=== PATIENT | female | born 1980 | race Caucasian/White ===

== ENCOUNTER → 2017-02-04 | Day surgery (SDC) | payer OTHER ==
--- NOTE | 2017-01-26 09:02 | GHP ---
[f rep st] PREOP HISTORY AND PHYSICAL Amended report SCHEDULED DATE OF SURGERY: 02/04/2017 SURGERY TO BE PERFORMED: Suction dilation and curettage. PREOPERATIVE DIAGNOSIS: Incomplete at 6 weeks gestation. HISTORY OF PRESENT ILLNESS: The patient is a 36-year-old, 1, para 0-0-1 -0 with a last menstrual period of October 27, 2016 who presented as a new patient to me on the with complaints of persistent vaginal bleeding and cramping status post spontaneous . The patient had been seen at [facility] for this . She had a history of polycystic ovarian syndrome and borderline thyroid function, and her had a history of decreased motility and morphology in his semen analysis. They were having a consultation with [facility] to try to conceive. The patient during her workup she had a spontaneous conception in October. She was followed by them, had ultrasounds. Ultrasounds initially revealed a pole that was 6 weeks' size, however, had a slow heart rate of 58, and a repeat ultrasound a week later, the heart rate had disappeared. The patient was given treatment options for her spontaneous , expectant management versus medical management versus surgical management. The patient initially rejected surgical management options and decided to try the Cytotec medication. The patient took this medication on January 10 when she had severe , painful cramping, heavy clots and cramps for several days, and then her bleeding slowed down. She had a repeat ultrasound at [facility] on January 13 that revealed a thickened endometrium that was 17 mm but no definitive retained products of conception. She was diagnosed as a spontaneous and her hormone levels and the recommendation was to follow her beta HCG down to 0. However, patient has continued to bleed and cramp for the last 2 weeks after that event and she desired to have a second opinion for management. When she saw me, she was having moderate spotting and increasing cramping. We repeated a pelvic ultrasound, and ultrasound revealed evidence of retained products of conception. In her lower endometrium and into her cervix, there was a 3.4 x 2.2 x 3.5 cm complex mass with a large feeder vessel seen from the uterus, the appearance of retained products of conception. No definitive gestational sac or pole were seen. No heart tones, heart motion. She also had ovaries consistent with PCOS. We again reviewed treatment options of repeat medical management versus surgical management, and patient desires to have surgical management because she wants to put this episode behind her. She was consented for a suction dilation curettage. Understands the risks and benefits. The risks including bleeding, infection, damage to the uterus, the possible risk of perforation, damage to other organs if perforation were to occur, risk of incomplete removal of all the tissue, need for repeat procedure, or spontaneous expulsion at a later time, as well as compromise of future fertility. She understood these risks and benefits and agreed to proceed. PAST OBSTETRICAL HISTORY: The patient has no past obstetrical history. This is her 1st . 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 She was evaluated during her fertility workup at [facility] and her TSH was 3.07. Because of studies revealing optimal thyroid function is at a TSH between 1 and 2, she was placed on Synthroid at 50 mcg daily which she continues to take currently. Also her diagnosis of PCOS. SURGICAL HISTORY: August of 2009 she had a knee surgery. GYNECOLOGICAL HISTORY: She had a normal menstrual triad, menarche at age 13. Currently she is having cycles every 31-40 days and she bleeds for 4 days with light flow and light cramps. She had more irregular cycles approximately 6 months ago but feels that they have been regulated by acupuncture and Israeli herbs. She has never had an abnormal Pap. Her last Pap was in December of 2014. She denies any history of STDs. She was using oral contraceptives for contraception until she was trying to conceive and she stopped those approximately a year ago. CURRENT MEDICATIONS: Include Synthroid 50 mcg daily, vitamins, and herbs from her [place] prior authorization nurse. ALLERGIES: She has no known drug allergies. SOCIAL HISTORY: She is for 7 years. She denies tobacco or substance abuse. Alcohol is social alcohol use approximately 3 a week. 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 FAMILY HISTORY: Her father has type 2 diabetes, is healthy at age 73. Her mother has hypertension and also had PCOS having difficulties getting . She is currently age 71. She has a healthy brother who is 38. No other significant family history. No significant cancer history. No other medical or gynecological problems. SUBJECTIVE: VITAL SIGNS: Today she is afebrile. Vital signs are stable. Current weight is 141. Blood pressure is 108/48. GENERAL: She is a well- developed, well-nourished, white female, in no acute distress. LUNGS: Clear to auscultation bilaterally. HEART: Regular rate and rhythm. No murmurs. ABDOMEN: Soft, nontender, nondistended. PELVIC: Will be deferred for the operating room. OBJECTIVE: The patient's ultrasound results were as above. ASSESSMENT AND PLAN: 36-year-old, 1, para 0-0-1-0, with an incomplete , was 6 weeks with a last menstrual period of 10/27/2016. We will do a suction dilation curettage for definitive management. /[id number]/MODL Amended 02/03/17, peewee HARTLEY
[~2017-02-04] MED LIST: DOXYCYCLINE INJ 100 MG in D5W 250 ML IV ONE; KETOROLAC 30 MG/1 ML SDV ONE; LIDOCAINE 2% 5 ML SDV ONE; MIDAZOLAM 2 MG/2 ML VIAL ONE; ONDANSETRON 4 MG/2 ML VIAL ONE; PROPOFOL/EMULSION 500 MG/50 ML BOTTLE IV ONE; fentaNYL 100 MCG/2 ML INJ ONE
--- NOTE | 2017-02-04 15:58 | GOP ---
[f rep st] OPERATIVE REPORT DATE OF OPERATION: 02/04/2017 SURGEON: Liz Abel MD ANESTHESIA: MAC sedation. ANESTHESIOLOGIST: Pablo Mosquera MD PREOPERATIVE DIAGNOSIS: Incomplete . POSTOPERATIVE DIAGNOSIS: Incomplete . PROCEDURE PERFORMED: Ultrasound-guided suction dilation and curettage. FINDINGS: SPECIMENS: Products of conception. ESTIMATED BLOOD LOSS: Less than 50 cc. DESCRIPTION OF PROCEDURE: Patient was taken to the operating room where she was given MAC sedation without difficulty, and she was prepped and draped in a dorsal lithotomy position. After a WHO time- out was performed, an open-sided speculum was placed in the vagina, and there was tissue and blood p resent at the cervical os. This was removed with a sponge forceps, and there was noted to be a foul odor. The anterior lip of the cervix was grasped with a Gates tenaculum, and the cervix was sounded to 8 cm. The cervix was then progressively dilated with Hebert dilators to a #7. A #7 curved suction curette was gently advanced from the cervix and advanced to the fundus, and tissue was obtained wit h several passes of the suction device. This was all performed under direct ultrasound guidance as a n abdominal ultrasound. After this, sharp curettage was then performed in a clockwise fashion until a gritty texture was palpated throughout the entire uterus and there was no further tissue obtained. One final passage of the suction again revealed good hemostasis and no further tissue. The tenaculum was removed. There was no bleeding at the cervix. The speculum was removed. A transvag inal ultrasound was then performed, and the uterus was found to be normal. There was a thin endometr ial stripe that was carried down from the fundus all the way to the cervix. The patient tolerated the procedure well. Sponge, lap, needle, and instrument counts were correct x2 . Patient went to the recovery room in good condition. INDICATIONS FOR PROCEDURE: The patient is a 36-year-old, 1, para 0-0-1-0 with a last menstr ual period of October 27, 2016, who presented with persistent bleeding, cramping, status post spontan eous . The patient had been followed by [facility] for this , a nd she spontaneously conceived. She was diagnosed with a spontaneous at approximately 6 wee ks and given options of medical management versus surgical management versus expectant. Patient ingreg pickering tried expectant management and then she tried a dose of Cytotec which she had significant cram ps and passed clots and blood, but there was tissue retained. On evaluation by me, in the beginning of January, she had an ultrasound that revealed a persistent 3 cm complex mass with a large feeder ves merrick in the lower endometrium into the cervix. The patient again was given treatment options, and she initially wished to try medical management again. She tried Cytotec with no sex, no bleeding, no cr amping, and then she began to have foul-smelling discharge with minimal bleeding but no tissue. At t his point, I recommended surgical management with suction dilation and curettage, and patient agreed . Patient was consented for the procedure. She understood the risks and benefits, the risks includin g bleeding, infection, damage to internal organs, uterus, including the uterus, possible risk of per foration and if perforation were to occur, possible risk of damage to other organs, risk of incomple te removal of the tissue with need for a repeat procedure with spontaneous expulsion at a later time , and compromise of future fertility. She understood these risks and benefits, and agreed to proceed . URINE OUTPUT: Not measured. IV FLUIDS: 800 cc. /[id number]/MODL
== END | disposition home or self-care (01) ==
LOC: FSGY 10:14
PROVIDERS: ATTEND Obstetrics & Gynecology
PROC: 10D17ZZ Extraction of Products of Conception, Retained, Via Natural or Artificial Opening (ICD-10-PCS; principal; 2017-02-04)
DX: O03.4 Incomplete spontaneous abortion without complication (principal)
CPT/HCPCS: J1885; J2250; J2405; J2704; J3010

== ENCOUNTER → 2017-10-13 | Outpatient (CLI) | payer OTHER | LOC: FIMAGING 08:56 | PROVIDERS: ATTEND Obstetrics & Gynecology | DX: O09.521 Supervision of elderly multigravida, first trimester (principal); Z3A.12 12 weeks gestation of pregnancy ==

== ENCOUNTER → 2017-12-08 | Outpatient (CLI) | payer OTHER | LOC: FIMAGING 11:46 | PROVIDERS: ATTEND Obstetrics & Gynecology | DX: O09.522 Supervision of elderly multigravida, second trimester (principal); O34.512 Maternal care for incarceration of gravid uterus, second trimester; Z3A.20 20 weeks gestation of pregnancy; Z82.79 Family history of other congenital malformations, deformations and chromosomal abnormalities ==

== ENCOUNTER → 2017-12-20 | Outpatient (CLI) | payer OTHER | LOC: FIMAGING 10:24 | PROVIDERS: ATTEND Obstetrics & Gynecology | DX: O09.522 Supervision of elderly multigravida, second trimester (principal); Z3A.22 22 weeks gestation of pregnancy; Z82.79 Family history of other congenital malformations, deformations and chromosomal abnormalities ==

== ENCOUNTER 2018-04-27 08:50 | Inpatient (IN) | payer OTHER ==
[2018-04-27] MEDS ORDERED: LR 1,000 ML IV PRN (09:42)
[2018-04-27] MEDS ORDERED: TERBUTALINE SULFATE 1 MG/ML VIAL IV PRN (09:42)
[2018-04-27] MEDS ORDERED: MISOPROSTOL 200 MCG TAB PR PRN (09:42)
[2018-04-27] MEDS ORDERED: OLIVE OIL 118 ML BTL MISC PRN (09:42)
[2018-04-27] MEDS ORDERED: LIDOCAINE 1% 300 MG/30 ML SDV SC PRN (09:42)
[2018-04-27] MEDS ORDERED: EPSOM SALT 454 GM TP PRN (09:42)
[2018-04-27] MEDS ORDERED: OXYTOCIN/RINGERS LACTATE 1,000 ML IV PRN (09:42)
[2018-04-27] MEDS ORDERED: IBUPROFEN 600 MG TAB PO PRN (09:42)
[2018-04-27] MEDS ORDERED: AMMONIA AROMATIC 1 EACH AMP IH ONE (09:53)
[2018-04-27] MEDS ORDERED: OXYTOCIN 10 UNIT/ML VIAL ONE (09:53)
[2018-04-27] MEDS ORDERED: MISOPROSTOL 200 MCG TAB ONE (09:53)
[2018-04-27] MEDS ORDERED: OLIVE OIL 118 ML BTL ONE (09:53)
[2018-04-27] MEDS ORDERED: TERBUTALINE SULFATE 1 MG/ML VIAL ONE (09:53)
[2018-04-27] MEDS ORDERED: LIDOCAINE 1% 300 MG/30 ML SDV ONE (09:53)
[2018-04-27 10:24] LABS: PLATELET COUNT 178 10^3/uL (150-400)
--- NOTE | 2018-04-27 10:30 | PDGENHP ---
History and Physical History and Physical: CARE: [facility] HPI: Patient is a 37 yo with IUP@ 40-2wks that presents to L&D with complaints of SROM 04/26/18 @1930- states it was clear fluid and she denies any VB. She reports +FM. She states she has started to have some irregular contractions starting at 0730. EDC: 04/25/2018 which is based on LMP: 07/19/17 which is known and consistent with Ultrasound at 7 weeks. Her is complicated by: AMA, Rubella NI, anemia, Rh negative, FOB with congenital heart disease Review of Systems: Constitutional: Denies any fever, chills, or fatigue HEENT: denies any visual changes, difficulty swallowing, hearing loss Cardiovascular: Denies any chest pain, palpitations, leg swelling Respiratory: denies any cough, wheezing, or shortness of breathe GI: Denies any nausea, vomiting, diarrhea, constipation : denies any dysuria, urgency, frequency, vaginal bleeding Musculoskeletal: denies any muscle or bone pain Skin: denies any rashes Neuro: denies any headache, seizures, lightheadedness, dizziness, or loss of consciousness Psychiatric: denies any depression, anxiety, or SI/HI thoughts HISTORY: Previous OB history: 2017 Past medical history: Rh negative Past surgical history: plical fold left knee Medications: PNV, rhogam 02/07/18 Allergies (list reaction): NKDA LABS: Rh: O neg ABS: Neg Rubella: NON-Immune HbsAg: NR HIV: NR VDRL: NR 1hr: 81 GC: Neg Chlamydia: Neg Pap: Normal GBS: negative BMI: (prepreg) 23 PHYSICAL EXAM: Constitutional: WN, A&Ox3 HEENT: normocephalic atraumatic, supple Heart: RRR, no murmur Chest: CTA-B Abdomen: Soft, nontender, gravid SVE: 2/80/-2 Extremities: trace edema, negative homans sign Neuro: grossly normal Psych: normal affect assessment: Reassuring FHTs, baseline 130 +accels, no decels, moderate variability Contractions: toco q 2-5 Assessment: 1) 37yo with IUP@ 40-2wks 2) early labor, SROM 04/26 @ 1930 3) GBS negative 4) Cat 1 FHR tracing Plan: 1) Admit to L&D 2) pitocin augmentation, pt declines at this time, will reassess 2hr PRN 3) pain management PRN
[2018-04-27] MEDS ORDERED: BUPIVACAINE 0.25% 30 ML SDV ONE (12:12)
[2018-04-27] MEDS ORDERED: PHENYLEPHRINE HCL 100 MCG/ML SYR ONE (12:12)
[2018-04-27] MEDS ORDERED: fentaNYL 200 MCG, BUPIVACAINE 0.5% 20 ML in NS 100 ML EP SCH (12:13)
[2018-04-27] MEDS ORDERED: fentaNYL 100 MCG/2 ML INJ ONE ×2 (12:14→12:18)
--- NOTE | 2018-04-27 12:56 | OBPROG ---
Labor Progress Note Assessment/Plan: Assessment: 37yo with IUP@40-2 early labor SROM 7/4 @ 1930 GBS Negative SANTA in place Cat 1 FHR tracing Plan: start pitocin PRN anticipate 04/27/18 13:40 Subjective/Intrapartum Course: 04/27/18 13:42 Pt doing well, she is comfortable with SANTA. She is discouraged regarding minimal cervical change. She is okay with starting pitocin. FOB and electronics processing supervisor @ BS, supportive. Objective: 04/27/18 09:45 Patient ABO/Rh O NEGATIVE 04/27/18 09:45 - SVE Dilation (cm): 3 Effacement (%): 75 Station: -2 Membranes: SROM Amniotic Fluid Color: Clear - Contraction Pattern Assessment Current Contraction Pattern: Regular - FHR Assessment Bueno FHR (bpm): 125 FHR Pattern Variability: Moderate Oxytocin Orders Assessment - Pre-Induction/Augmentation Assessment Presentation: Vertex Gestational Age: 40 week(s) and 2 day(s) Estimated Weight: 4798-7427 Membrane Status: Ruptured Current Contraction Pattern: Regular - Heart Rate Pattern Bueno FHR Category: 1 - Rosales's Score Dilation: 3-4cm Effacement: 60-70 Station: -2 Cervix: Medium Cervix Position: Mid Rosales Score Total: 7 - Induction/Augmentation Consent Risks/Benefits of Procedure Reviewed/Pt Agrees to Proceed: Yes ICD10 Worksheet Patient Problems: Problems Problem Status Onset Labor and delivery, indication for care Acute - ICD10 Problem Qualifiers (1) Labor and delivery, indication for care
[2018-04-27] MEDS ORDERED: ONDANSETRON 4 MG/2 ML VIAL IVP PRN (13:05)
[2018-04-27] MEDS ORDERED: PHENYLEPHRINE HCL 100 MCG/ML SYR IVP PRN (13:05)
--- NOTE | 2018-04-27 13:12 | PREANESOB ---
Obstetric Pre-Anesthesia Info - General Info Proposed Procedure: Labor and delivery. : 2 Para: 0 GLYNN: 04/25/18 Gestational Age: 40 week(s) and 2 day(s) - Info Status: Full Term Monitors: External FHR Baseline (bpm): 140 FHR Pattern: Reassuring - Labor Status Cervical Dilation per last OB SVE: 2 PIH: No Anesthesia ROS: Previous D&C and knee surgery with general anesthesia. Allergies/Adverse Reactions: Allergy/AdvReac Type Severity Reaction Status Date / Time No Known Allergies Allergy Unverified 02/04/17 10:39 Home Medications: Medication Instructions Recorded Vit27&Calcium/Iron/FA 04/27/18 [] Visit Medications: Generic Name Dose Route Start Last Admin Trade Name Freq PRN Reason Stop Dose Admin Diphenhydramine HCl 25 - 50 mg 04/27/18 13:05 Benadryl Injection IVP 10/24/18 13:04 Q6HRS PRN Itching Lactated Ringer's 1,000 mls @ 0 mls/hr 04/27/18 09:42 Lr IV 04/28/18 09:41 PRN PRN SEE PROTOCOL CONDITIONS Protocol Per Protocol Oxytocin/Lactated Ringer's 1,000 mls @ 125 mls/hr 04/27/18 09:42 Pitocin 20 Units/Lr (Premix) IV PRN PRN Post bleeding Fentanyl 200 mcg/ Bupivacaine 100 mls @ mls/hr 04/27/18 12:13 HCl 20 ml/ Sodium Chloride EP 05/07/18 12:12 CONT OREN As Directed Ibuprofen 600 mg 04/27/18 09:42 Motrin PO ONCE PRN post , pain Lidocaine HCl 300 mg 04/27/18 09:42 Lidocaine Hcl 1% SC 10/24/18 09:41 ONCE PRN episiotomy Magnesium Sulfate 454 gm 04/27/18 09:42 Epsom Salt TP 10/24/18 09:41 Q1H PRN perineal discomfort Misoprostol 800 - 1,000 mcg 04/27/18 09:[address] ONCE PRN Vaginal Atony/Bleeding [place] Oil 118 ml 04/27/18 09:42 Sweet Oil MISC 10/24/18 09:41 ONCE PRN perineal massage Terbutaline Sulfate 0.25 mg 04/27/18 09:42 Brethine IV 10/24/18 09:41 ONCE PRN Tachysystole Discontinued Medications Generic Name Dose Route Start Last Admin Trade Name Kody PRN Reason Stop Dose Admin Ammonia (Aromatic Spirit) Confirm 04/27/18 09:53 Ammonia Aromatic Administered 04/27/18 09:54 Dose 1 each IH .STK-MED ONE Bupivacaine HCl Confirm 04/27/18 12:12 Sensorcaine 0.25% Sdv Administered 04/27/18 12:13 Dose 30 ml .ROUTE .STK-MED ONE Fentanyl Confirm 04/27/18 12:14 Sublimaze Administered 04/27/18 12:15 Dose 100 mcg .ROUTE .STK-MED ONE Fentanyl Confirm 04/27/18 12:18 Sublimaze Administered 04/27/18 12:19 Dose 100 mcg .ROUTE .STK-MED ONE Lidocaine HCl Confirm 04/27/18 09:53 Lidocaine Hcl 1% Administered 04/27/18 09:54 Dose 300 mg .ROUTE .STK-MED ONE Misoprostol Confirm 04/27/18 09:53 Cytotec Administered 04/27/18 09:54 Dose 1,000 mcg .ROUTE .STK-MED ONE [place] Oil Confirm 04/27/18 09:53 Sweet Oil Administered 04/27/18 09:54 Dose 118 ml .ROUTE .STK-MED ONE Oxytocin Confirm 04/27/18 09:53 Pitocin Administered 04/27/18 09:54 Dose 40 unit .ROUTE .STK-MED ONE Phenylephrine HCl Confirm 04/27/18 12:12 Neosynephrine Administered 04/27/18 12:13 Dose 1,000 mcg .ROUTE .STK-MED ONE Terbutaline Sulfate Confirm 04/27/18 09:53 Brethine Administered 04/27/18 09:54 Dose 1 mg .ROUTE .STK-MED ONE - Anesthesia History Response to Local Anesthetics: Normal Anesthesia & Operative History: No Prior Problems Family Anesthesia History: Negative - Social History Substance Use/Abuse: Denies - Vital Signs Blood Pressure: 118/72 Heart Rate: 70 Height/Weight (Nursing): Height 165.1 cm Weight 75.9 kg - Focused Exam Neck exam: FROM Mallampati Score: Class 1 Mouth exam: normal dental/mouth exam Pulmonary: no respiratory distress Cardiovascular: regular rate and rhythym Labs: 04/27/18 09:45 Patient ABO/Rh O NEGATIVE 04/27/18 09:45 - Plan Anesthetic Plan: CSE Consent Signed and on Chart: Yes Patient/Guardian Understands and Agrees to Plan: Yes Urgent/Emergent Case: Shahbaz vergaraal completed preop but documented later for safe timely pt care
--- NOTE | 2018-04-27 13:13 | POSTANESTH ---
Post Anesthetic Evaluation Cardiovascular Status: Normal, Stable, Similar to Pre-Op Cond Respiratory Status: Normal, Stable, Similar to Pre-op Cond. Level of Consciousness/Mental Status: Can Participate in Eval, Alert and Oriented Pain Control: Adequate, Prn Tx Ordered Nausea/Vomiting Control: Adequate, Prn Tx Ordered Complications Possibly Related to Anesthesia: None Noted
[2018-04-27] MEDS ORDERED: fentaNYL 2MCG/ML/BUP 0.1% RTU 100 ML EP SCH (13:30)
[2018-04-27] MEDS ORDERED: LR 500 ML IV SCH (13:30)
[2018-04-27] MEDS ORDERED: LR 500 ML IV PRN (16:19)
[2018-04-27] MEDS ORDERED: OXYTOCIN/RINGERS LACTATE 500 ML IV SCH (16:30)
--- NOTE | 2018-04-27 16:54 | OBPROG ---
Labor Progress Note Assessment/Plan: Assessment: 37yo with IUP@40-2 early labor SROM 7/4 @ 1930 GBS Negative SANTA in place Cat 1 FHR tracing IUPC placed Plan: start pitocin if MVU's <180 anticipate Subjective/Intrapartum Course: 04/27/18 16:53 Pt doing well, she is comfortable with SANTA. She denies any pain or pressure. She has agreed to pitocin, will start if MVU's <180. FOB and mold builder @ BS and supportive. Objective: 04/27/18 09:45 Patient ABO/Rh O NEGATIVE 04/27/18 09:45 Temp Pulse Resp BP Pulse Ox 70 118/72 04/27/18 13:13 04/27/18 13:13 - SVE Dilation (cm): 4 Effacement (%): 80 Station: -2 Membranes: SROM Amniotic Fluid Color: Clear - Contraction Pattern Assessment Current Contraction Pattern: Regular - Procedures Non-surgical Procedures: IUPC - Physical Exam Estimated Weight: 2506-6184 Oxytocin Orders Assessment - Pre-Induction/Augmentation Assessment Presentation: Vertex Gestational Age: 40 week(s) and 2 day(s) Estimated Weight: 5326-6680 ICD10 Worksheet Patient Problems: Problems Problem Status Onset Labor and delivery, indication for care Acute - ICD10 Problem Qualifiers (1) Labor and delivery, indication for care
--- NOTE | 2018-04-27 17:45 | SOAPPROG ---
SOAP Progress Note Assessment/Plan: nurse called for concerns re: pseudosinusoidal pattern FHR tracing reviewed +Scalp stimulation reassured with FHR tracing Start pitocin at this time. 04/27/18 17:43 Objective: Vital Signs Temp Pulse Resp BP Pulse Ox 70 118/72 04/27/18 13:13 04/27/18 13:13 Laboratory Results 04/27/18 09:45 ICD10 Worksheet Patient Problems: Problems Problem Status Onset Labor and delivery, indication for care Acute - ICD10 Problem Qualifiers (1) Labor and delivery, indication for care
--- NOTE | 2018-04-27 20:01 | OBPROG ---
Labor Progress Note Assessment/Plan: Assessment: 37yo with IUP@ 40-2wks GBS Negative SROM 7/4 @ 1930, >24hr Cat 2 FHR tracing [address] O negative Plan: cont pitocin until adequate MVUs reassess 2hr/PRN 04/27/18 19:57 Subjective/Intrapartum Course: 04/27/18 16:53 Pt doing well, she is comfortable with SANTA. She denies any pain or pressure. She has agreed to pitocin, will start if MVU's <180. FOB and steeping press tender @ BS and supportive. 04/27/18 20:01 Pt comfortable with SANTA. Denies any pain or pressure. Objective: 04/27/18 09:45 Patient ABO/Rh O NEGATIVE 04/27/18 09:45 Temp Pulse Resp BP Pulse Ox 70 118/72 04/27/18 13:13 04/27/18 13:13 - SVE Dilation (cm): 6 Effacement (%): 90 Station: -1 Membranes: SROM Amniotic Fluid Color: Clear - Contraction Pattern Assessment Current Contraction Pattern: Regular - FHR Assessment Buneo FHR (bpm): 135 FHR Pattern Variability: Moderate FHR Category: 2 - Procedures Non-surgical Procedures: FSE, IUPC - Physical Exam Estimated Weight: 8637-2359 Oxytocin Orders Assessment - Pre-Induction/Augmentation Assessment Presentation: Vertex Gestational Age: 40 week(s) and 2 day(s) Estimated Weight: 0822-6115 ICD10 Worksheet Patient Problems: Problems Problem Status Onset Labor and delivery, indication for care Acute - ICD10 Problem Qualifiers (1) Labor and delivery, indication for care
--- NOTE | 2018-04-28 00:39 | OBPROG ---
Labor Progress Note Assessment/Plan: Assessment: 37yo with IUP@ 40-3wks GBS Negative Prolong ROM (SROM 7/4 @ 1930) Cat 1 FHR tracing SANTA in place O negative ?Asynclitic presentation Plan: cont pitocin augmentation Reassess in 1 hour- if not complete will proceed with c/s discussed position and possibility of asynclitic presentation Discussed with Maddison Vasquez MD- aware/agrees with POC 04/28/18 00:24 Subjective/Intrapartum Course: 04/27/18 16:53 Pt doing well, she is comfortable with SANTA. She denies any pain or pressure. She has agreed to pitocin, will start if MVU's <180. FOB and milling planer operator @ BS and supportive. 04/27/18 20:01 Pt comfortable with SANTA. Denies any pain or pressure. 04/28/18 00:39 Pt comfortable- has hit bolus button for SANTA. She denies any pressure. She is hopeful for Objective: 04/27/18 09:45 Patient ABO/Rh O NEGATIVE 04/27/18 09:45 Temp Pulse Resp BP Pulse Ox 70 118/72 04/27/18 13:13 04/27/18 13:13 - SVE Dilation (cm): 9 Effacement (%): 90 Station: -1 Membranes: SROM Amniotic Fluid Color: Clear - Contraction Pattern Assessment Current Contraction Pattern: Regular - Procedures Non-surgical Procedures: FSE, IUPC - Physical Exam Estimated Weight: 9837-3431 Oxytocin Orders Assessment - Pre-Induction/Augmentation Assessment Presentation: Vertex Gestational Age: 40 week(s) and 2 day(s) Estimated Weight: 2892-7125 ICD10 Worksheet Patient Problems: Problems Problem Status Onset Labor and delivery, indication for care Acute - ICD10 Problem Qualifiers (1) Labor and delivery, indication for care
--- NOTE | 2018-04-28 02:55 | OBPROG ---
Labor Progress Note Assessment/Plan: Assessment: 37yo with IUP@ 40-3wks GBS Negative Prolong ROM (SROM 7/4 @ 1930) Cat 1 FHR tracing SANTA in place O negative ?Asynclitic presentation Plan: cont pitocin augmentation start pushing at this time if no descent will consult with Maddison Vasquez MD Subjective/Intrapartum Course: 04/27/18 16:53 Pt doing well, she is comfortable with SANTA. She denies any pain or pressure. She has agreed to pitocin, will start if MVU's <180. FOB and service girl @ BS and supportive. 04/27/18 20:01 Pt comfortable with SANTA. Denies any pain or pressure. 04/28/18 00:39 Pt comfortable- has hit bolus button for SANTA. She denies any pressure. She is hopeful for 04/28/18 01:50 Pt comfortable with SANTA. She denies any pain or pressure. Objective: 04/27/18 09:45 Patient ABO/Rh O NEGATIVE 04/27/18 09:45 Temp Pulse Resp BP Pulse Ox 70 118/72 04/27/18 13:13 04/27/18 13:13 - SVE Dilation (cm): 10 Effacement (%): 100 Station: 0 Membranes: SROM Amniotic Fluid Color: Clear - Contraction Pattern Assessment Current Contraction Pattern: Regular - Procedures Non-surgical Procedures: FSE, IUPC - Physical Exam Estimated Weight: 0009-8194 Oxytocin Orders Assessment - Pre-Induction/Augmentation Assessment Presentation: Vertex Gestational Age: 40 week(s) and 2 day(s) Estimated Weight: 3331-1718 ICD10 Worksheet Patient Problems: Problems Problem Status Onset Labor and delivery, indication for care Acute - ICD10 Problem Qualifiers (1) Labor and delivery, indication for care
--- NOTE | 2018-04-28 04:37 | OBPROG ---
Labor Progress Note Assessment/Plan: Assessment: 37 at 40w 3d with arrest of descent after pushing for a total of over 2 hours, and over an hour of passive descent, with prolonged rupture of membranes x 33 hours. Plan: Written informed consent obtained, will proceed with primary C/S. Maddison Vasquez MD, FACOG, [facility] 04/28/18 04:34 Subjective/Intrapartum Course: 04/27/18 16:53 Pt doing well, she is comfortable with SANTA. She denies any pain or pressure. She has agreed to pitocin, will start if MVU's <180. FOB and polymerization helper @ BS and supportive. 04/27/18 20:01 Pt comfortable with SANTA. Denies any pain or pressure. 04/28/18 00:39 Pt comfortable- has hit bolus button for SANTA. She denies any pressure. She is hopeful for 04/28/18 01:50 Pt comfortable with SANTA. She denies any pain or pressure. 04/28/18 04:36 Pt has been pushing since before 0200, no descent, is frustrated. Objective: 04/27/18 09:45 Patient ABO/Rh O NEGATIVE 04/27/18 09:45 Temp Pulse Resp BP Pulse Ox 70 118/72 04/27/18 13:13 04/27/18 13:13 SVE - C/C/ 0 narrowed pubic arch. Unable to confirm position due to caput and significant maternal edema, though suspect occiput transverse. - SVE Membranes: SROM Amniotic Fluid Color: Clear - Contraction Pattern Assessment Current Contraction Pattern: Regular - FHR Assessment Bueno FHR (bpm): 130 FHR Pattern Variability: Moderate (intermittent early decelerations) FHR Category: 2 - Procedures Non-surgical Procedures: FSE, IUPC - Physical Exam Estimated Weight: 5997-4370 Oxytocin Orders Assessment - Pre-Induction/Augmentation Assessment Presentation: Vertex Gestational Age: 40 week(s) and 2 day(s) Estimated Weight: 4888-9260 Current Contraction Pattern: Regular ICD10 Worksheet Patient Problems: Problems Problem Status Onset Deep transverse arrest Acute Deep transverse arrest Acute Labor and delivery, indication for care Acute - ICD10 Problem Qualifiers (1) Deep transverse arrest Qualifiers: Fetus number: single or unspecified fetus Qualified Code(s): O64.0XX0 - Obstructed labor due to incomplete rotation of head, not applicable or unspecified (2) Deep transverse arrest
[2018-04-28] MEDS ORDERED: ceFAZolin 2 GM/DEXTROSE 100 ML IV ONE (04:39)
[2018-04-28] MEDS ORDERED: LR 500 ML IV ONE (04:39)
--- NOTE | 2018-04-28 04:47 | OBPROG ---
Labor Progress Note Assessment/Plan: Assessment: 37yo with IUP@ 40-3wks GBS Negative Prolong ROM (SROM 7/4 @ 1930) Cat 1 FHR tracing SANTA in place O negative ROT position? Arrest of descent Plan: consulted with Dr Maddison Vasquez for primary c/s counseled pt re: c/s B/R/A, consents obtained Subjective/Intrapartum Course: 04/27/18 16:53 Pt doing well, she is comfortable with SANTA. She denies any pain or pressure. She has agreed to pitocin, will start if MVU's <180. FOB and ceramic sprayer @ BS and supportive. 04/27/18 20:01 Pt comfortable with SANTA. Denies any pain or pressure. 04/28/18 00:39 Pt comfortable- has hit bolus button for SANTA. She denies any pressure. She is hopeful for 04/28/18 01:50 Pt comfortable with SANTA. She denies any pain or pressure. 04/28/18 04:00 Pt pushing with good effort for approx 2 hours with no descent. Pt tearful at idea of c/s, but discussed B/R/A. pt verbalizes understanding. 04/28/18 04:36 Pt has been pushing since before 0200, no descent, is frustrated. Objective: 04/27/18 09:45 Patient ABO/Rh O NEGATIVE 04/27/18 09:45 Temp Pulse Resp BP Pulse Ox 70 118/72 04/27/18 13:13 04/27/18 13:13 - SVE Dilation (cm): 10 Effacement (%): 100 Station: 0 Membranes: SROM Amniotic Fluid Color: Clear - Contraction Pattern Assessment Current Contraction Pattern: Regular - Procedures Non-surgical Procedures: FSE, IUPC - Physical Exam Estimated Weight: 5703-5245 Oxytocin Orders Assessment - Pre-Induction/Augmentation Assessment Presentation: Vertex Gestational Age: 40 week(s) and 2 day(s) Estimated Weight: 3606-3720 ICD10 Worksheet Patient Problems: Problems Problem Status Onset Labor and delivery, indication for care Acute - ICD10 Problem Qualifiers (1) Labor and delivery, indication for care
--- NOTE | 2018-04-28 04:56 | SUROPNOTE ---
[facility] Operative Report - Surgery OPERATIVE NOTE 04/28/18 PRE-OPERATIVE DIAGNOSIS: Arrest of descent at 40 weeks 3 days gestation POST-OPERATIVE DIAGNOSIS: Same SURGEON: Maddison Vasquez MD SHOVEL HANDLE ASSEMBLER: Caitlin Oconnor CNM, needed for adequate retraction and visualization ANESTHESIA: epidural ANESTHESIOLOGIST: Brendan Pickard MD NURSE PRACTITIONER: IV FLUIDS: 700 ml ESTIMATED BLOOD LOSS: 800 ml URINE OUTPUT: 200 ml INDICATIONS: 37 year old at 40 weeks 3 days gestation, has been pushing for over 2 hours, after an hour of passive descent, with arrest of descent, suspect transverse presentation. FINDINGS: Normal appearing uterus, tubes & ovaries, infant was ROT. 3346gm, Apgars 8 & 9, male PROCEDURE: Written informed consent was obtained. The patient was taken to the operating room where epidural anesthesia was dosed appropriately. A time out was performed. She was given 2 gm of Ancef. A Wells catheter was in place. Her abdomen was steriley prepared and draped in the standard fashion. A Pfannensteil skin incision was made and taken sharply down to the fascia. The fascia was incised in the midline and this was extended laterally in a sharp fashion. The rectus muscles were . The peritoneum was entered bluntly , and the opening was extended in a blunt fashion. A bladder flap was created with sharp and blunt dissection and the bladder blade was placed over the bladder. A hysterotomy was made and extended laterally in a blunt fashion. Membranes were rupture with the release of clear fluid. The vertex was able to be elevated out of the pelvis, and with the assistance of fundal pressure, was able to be delivered through the hysterotomy. Bulb suction of the mouth and nose was performed. The body of the fetus was then able to be delivered with fundal pressure and gentle guidance of the vertex. A one minute delay was observed prior to clamping and cutting the cord. The fetus was stimulated and dried during this time. The fetus was then handed to the awaiting MANAGER SALES. The uterus was exteriorized and cleared of all clots and debris with a lap sponge x 2. The hysterotomy was repaired with 0.0 Monocryl in a running locked fashion. A second imbricating layer was also placed. Excellent hemostasis was noted. The posterior cul de sac and gutters were irrigated and cleared of clots and debris. The uterus was replaced into the abdomen. Excellent hemostasis was noted. The fascia was closed with 0.0 PDS in a running fashion. The wound was irrigated and cautery was used to obtain hemostasis of the subcutaneou tissue. Saad's fascia was closed with 3.0 Monocryl in a running fashion. The skin was closed with 4.0 Monocryl in a running subcuticular fashion. Mastisol was applied to the skin and steri strips were applied, followed by a sterile dressing. Sponge, lap and needle counts were correct x 2. The patient was taken to the recovery room in stable condition. Maddison Vasquez MD
[2018-04-28] MEDS ORDERED: LIDO/EPI 2% **for epidural** 20 ML SDV ONE (04:57)
[2018-04-28] MEDS ORDERED: OXYTOCIN 100 UNITS/10 ML VIAL ONE (04:58)
[2018-04-28] MEDS ORDERED: METOCLOPRAMIDE 10 MG/2 ML VIAL ONE (04:58)
[2018-04-28] MEDS ORDERED: LR 1,000 ML IV SCH (05:00)
[2018-04-28] MEDS ORDERED: PHENYLEPHRINE HCL 100 MCG/ML SYR ONE (05:50)
[2018-04-28] MEDS ORDERED: morphINE PF 5 MG/10 ML INJ ONE (05:59)
[2018-04-28] MEDS ORDERED: KETOROLAC 30 MG/1 ML SDV ONE (06:06)
[2018-04-28] MEDS ORDERED: NALOXONE HCL 0.4 MG/ML INJ IVP PRN (06:09)
[2018-04-28] MEDS ORDERED: PHENYLEPHRINE HCL 100 MCG/ML SYR IVP PRN (06:09)
[2018-04-28] MEDS ORDERED: MEPERIDINE 25 MG/0.5 ML AMP IVP PRN (06:09)
--- NOTE | 2018-04-28 06:24 | POSTANESTH ---
Post Anesthetic Evaluation Cardiovascular Status: Normal, Stable Respiratory Status: Normal, Stable Level of Consciousness/Mental Status: Can Participate in Eval Pain Control: Adequate, Prn Tx Ordered Nausea/Vomiting Control: Adequate, Prn Tx Ordered Complications Possibly Related to Anesthesia: None Noted
--- NOTE | 2018-04-28 06:44 | OBDEL ---
Info Type: Primary Presentation at Delivery: Vertex L&D Analgesia/Anesthesia Type: Epidural GBS+: No Intrapartum Medications: Generic Name Dose Route Start Last Admin Trade Name Freq PRN Reason Stop Dose Admin Oxytocin/Lactated Ringer's 500 mls @ 0 mls/hr 04/27/18 16:30 04/27/18 17:44 Pitocin 30 Units/Lr (Premix) IV 10/24/18 16:29 500 mls CONT OREN Administration Protocol Per Protocol Discontinued Medications Generic Name Dose Route Start Last Admin Trade Name Freq PRN Reason Stop Dose Admin Cefazolin Sodium/Dextrose 100 mls @ 200 mls/hr 04/28/18 04:39 04/28/18 04:53 Ancef 2 Gm IV 04/28/18 05:08 100 mls ONCALL ONE Administration Protocol - Care Provider [employer] Salesperson/ICE PLATFORM SUPERVISOR: Margaux Herrera - Hospital Course Intrapartum: 04/27/18 16:53 Pt doing well, she is comfortable with SANTA. She denies any pain or pressure. She has agreed to pitocin, will start if MVU's <180. FOB and launch operator @ BS and supportive. 04/27/18 20:01 Pt comfortable with SANTA. Denies any pain or pressure. 04/28/18 00:39 Pt comfortable- has hit bolus button for SANTA. She denies any pressure. She is hopeful for 04/28/18 01:50 Pt comfortable with SANTA. She denies any pain or pressure. 04/28/18 04:36 Pt has been pushing since before 0200, no descent, is frustrated. Indications for Delivery: SROM Vaginal Delivery - Labor and Delivery Onset of Contractions Date: 04/27/18 Onset of Contractions Time: 07:30 Amniotic Fluid Color: Clear Non-surgical Procedures: FSE, IUPC Cord Gases: Cord Gases Cord Blood PCO2 46.1 mmHg (37-60) 04/28/18 05:40 Cord Base Excess -6.0 mEq/L (-13.6--3.2) 04/28/18 05:40 Cord ABG pH 7.18 (7.10-7.37) 04/28/18 05:40 Cord VBG pH 7.27 (7.20-7.42) 04/28/18 05:40 Operative Report - Delivery Pre-op Diagnoses: Arrest of descent Post-op Diagnoses: arrest of descent, ROT History of Prior Section: No Nulliparous Prior to Delivery: No Indications for Prior Section: Arrest of Descent Indications for Current Section: Arrest of Descent Procedure: Unscheduled, Low Transverse Surgeon: Maddison Vasquez Landing Signal Officer: Caitlin Oconnor Anesthesiologist: Brendan Pickard Complications: Nucal Cord Findings: normal uterus/ovaries/tubes EBL: 800 Cord Gases: Cord Gases Cord Blood PCO2 46.1 mmHg (37-60) 04/28/18 05:40 Cord Base Excess -6.0 mEq/L (-13.6--3.2) 04/28/18 05:40 Cord ABG pH 7.18 (7.10-7.37) 04/28/18 05:40 Cord VBG pH 7.27 (7.20-7.42) 04/28/18 05:40 [place] Data GLYNN: 04/25/18 Gestational Age: 40 week(s) and 3 day(s) Bueno Delivery Date: 04/28/18 Delivery Time: 05:31 Sex of : Male Score (1 Min): 8 Score (5 Min): 9 ICD10 Worksheet Patient Problems: Problems Problem Status Onset delivery delivered Acute Deep transverse arrest Acute Deep transverse arrest Acute Labor and delivery, indication for care Acute Nuchal cord, single gestation Acute - ICD10 Problem Qualifiers (1) Labor and delivery, indication for care (2) delivery delivered (3) Nuchal cord, single gestation
[2018-04-28] MEDS: KETOROLAC 30 MG/1 ML SDV IVP PRN ×2 (08:35→20:35)
[2018-04-29] MEDS: KETOROLAC 30 MG/1 ML SDV IVP PRN (02:39)
[2018-04-29] MEDS ORDERED: POLYETHYLENE GLYCOL 3350 17 GM PKT PO PRN (10:15)
[2018-04-29] MEDS ORDERED: LACTULOSE 20 GM/30 ML UDCUP PO PRN (10:15)
[2018-04-29] MEDS ORDERED: BISACODYL 10 MG SUPP PR PRN (10:15)
[2018-04-29] MEDS ORDERED: MAGNESIUM HYDROXIDE 30 ML UDCUP PO PRN (10:15)
[2018-04-29] MEDS ORDERED: MEASLES,MUMPS&RUBELLA VACC/PF 0.5 ML VIAL SC ONE ×2 (10:28→13:00)
--- NOTE | 2018-04-29 10:41 | OBPROG ---
Labor Progress Note Assessment/Plan: note entered in error Subjective/Intrapartum Course: 04/27/18 16:53 Pt doing well, she is comfortable with SANTA. She denies any pain or pressure. She has agreed to pitocin, will start if MVU's <180. FOB and candy feeder @ BS and supportive. 04/27/18 20:01 Pt comfortable with SANTA. Denies any pain or pressure. 04/28/18 00:39 Pt comfortable- has hit bolus button for SANTA. She denies any pressure. She is hopeful for 04/28/18 01:50 Pt comfortable with SANTA. She denies any pain or pressure. 04/28/18 04:36 Pt has been pushing since before 0200, no descent, is frustrated. Objective: 04/27/18 09:45 Patient ABO/Rh O NEGATIVE 04/27/18 09:45 Temp Pulse Resp BP Pulse Ox 36.1 C 78 16 117/78 96 04/29/18 09:51 04/29/18 09:51 04/29/18 03:22 04/29/18 09:51 04/29/18 09:51 - SVE Membranes: SROM Amniotic Fluid Color: Clear Dilation Complete Date: 04/28/18 Dilation Complete Time: 01:33 - Contraction Pattern Assessment Current Contraction Pattern: Regular - Procedures Non-surgical Procedures: FSE, IUPC - Physical Exam Estimated Weight: 6892-2999 Oxytocin Orders Assessment - Pre-Induction/Augmentation Assessment Presentation: Vertex Gestational Age: 40 week(s) and 2 day(s) Estimated Weight: 6938-2299 ICD10 Worksheet Patient Problems: Problems Problem Status Onset delivery delivered Acute Deep transverse arrest Acute Deep transverse arrest Acute Labor and delivery, indication for care Acute Nuchal cord, single gestation Acute - ICD10 Problem Qualifiers (1) Labor and delivery, indication for care (2) delivery delivered (3) Nuchal cord, single gestation
--- NOTE | 2018-04-29 10:42 | OBPP ---
Progress Note Assessment/Plan: Assessment: 37yo POD#1 Rh negative Rubella NI Plan: routine PO care MMR cont lactations support ambulate PRN anticipate d/c home 48-73hrs Subjective/ Course: 04/29/18 10:41 Pt doing well, she is ambulating. She is . is @BS and supportive. She has not had any flatus or BM yet. She reports min bleeding and pain. Objective: 04/27/18 09:45 Patient ABO/Rh O NEGATIVE 04/27/18 09:45 Temp Pulse Resp BP Pulse Ox 36.1 C 78 16 117/78 96 04/29/18 09:51 04/29/18 09:51 04/29/18 03:22 04/29/18 09:51 04/29/18 09:51 Uterine Position/Fundal Height: Umbilicus -1, Midline Uterine Tone: Firm Physical Exam - Physical Exam General Appearance: WD/WN, alert, no apparent distress Neck: supple Respiratory: lungs clear, normal breath sounds Cardiac/Chest: regular rate, rhythm Abdomen: non-tender, soft, incision (steri strips present; C/D/I) Skin: normal color, warm/dry Neuro/Psych: alert, normal mood/affect, oriented x 3
[2018-04-29] MEDS: ACETAMINOPHEN 325 MG TAB PO PRN ×2 (12:19→18:19)
[2018-04-29] MEDS: SENNOSIDES/DOCUSATE SODIUM TAB PO SCH ×2 (15:07→21:17)
[2018-04-29] MEDS: IBUPROFEN 600 MG TAB PO PRN ×2 (15:16→21:17)
[2018-04-29] MEDS: oxyCODONE IR 5 MG TAB PO PRN (18:27)
[2018-04-29] MEDS: FERROUS SULFATE 325 MG TAB PO SCH (21:17)
[2018-04-30] MEDS: ACETAMINOPHEN 325 MG TAB PO PRN ×4 (00:27→22:08)
[2018-04-30] MEDS: IBUPROFEN 600 MG TAB PO PRN ×4 (03:19→22:09)
[2018-04-30] MEDS: SENNOSIDES/DOCUSATE SODIUM TAB PO SCH ×2 (10:28→21:54)
[2018-04-30] MEDS: FERROUS SULFATE 325 MG TAB PO SCH ×2 (10:28→21:51)
--- NOTE | 2018-04-30 11:32 | OBPP ---
Progress Note Assessment/Plan: Assessment: Assessment: 37yo POD#2 Rh negative Rubella NI Plan: routine PO care MMR cont lactations support ambulate PRN anticipate d/c home tomorrow Subjective/ Course: 04/29/18 10:41 Pt doing well, she is ambulating. She is . is @BS and supportive. She has not had any flatus or BM yet. She reports min bleeding and pain. 04/30/18 18:47 Doing alright - incision bothering her more today in terms of dull pain when she 's transferring from bed, etc. Would like to stay until tomorrow. Objective: 04/29/18 15:30 Patient ABO/Rh O NEGATIVE 04/27/18 09:45 Temp Pulse Resp BP Pulse Ox 36.2 C 73 16 114/73 97 04/30/18 03:34 04/30/18 03:34 04/30/18 03:34 04/30/18 10:37 04/30/18 10:37 Uterine Position/Fundal Height: At Umbilicus Uterine Tone: Firm Physical Exam - Physical Exam Abdomen: non-tender, soft, incision (CDI, steri-strips), No distended
[2018-04-30] MEDS: oxyCODONE IR 5 MG TAB PO PRN ×2 (17:44→17:50)
[2018-04-30] MEDS ORDERED: CALCIUM CARBONATE 500 MG CHEWABLE TAB PO PRN (17:51)
[2018-05-01] MEDS: ACETAMINOPHEN 325 MG TAB PO PRN ×2 (04:35→13:21)
[2018-05-01] MEDS: IBUPROFEN 600 MG TAB PO PRN ×2 (04:39→13:20)
[2018-05-01] MEDS: FERROUS SULFATE 325 MG TAB PO SCH (10:14)
[2018-05-01] MEDS: SENNOSIDES/DOCUSATE SODIUM TAB PO SCH (10:14)
[2018-05-01 10:39] VITALS: BP 112/73
--- NOTE | 2018-05-01 13:05 | OBGCSDC ---
General Delivery Information - General Info : 2 Para: 1 Abortions: 1 Type: Primary L&D Analgesia/Anesthesia Type: Epidural, Spinal Admission Date: 04/27/18 Labs: Patient ABO/Rh O NEGATIVE 04/27/18 09:45 Hct 29.6 % (38.0-47.0) L 04/29/18 15:30 - Hospital Course Intrapartum: 04/27/18 16:53 Pt doing well, she is comfortable with SANTA. She denies any pain or pressure. She has agreed to pitocin, will start if MVU's <180. FOB and moisture meter reader @ BS and supportive. 04/27/18 20:01 Pt comfortable with SANTA. Denies any pain or pressure. 04/28/18 00:39 Pt comfortable- has hit bolus button for SANTA. She denies any pressure. She is hopeful for 04/28/18 01:50 Pt comfortable with SANTA. She denies any pain or pressure. 04/28/18 04:36 Pt has been pushing since before 0200, no descent, is frustrated. : 04/29/18 10:41 Pt doing well, she is ambulating. She is . is @BS and supportive. She has not had any flatus or BM yet. She reports min bleeding and pain. 04/30/18 18:47 Doing alright - incision bothering her more today in terms of dull pain when she 's transferring from bed, etc. Would like to stay until tomorrow. 05/01/18 15:44 S) Pt doing well, reports min pain and bleeding. she is ambulating and voiding without difficulty. She is . She desires discharge home today. O) VSS, afebrile constitutional: WNWF, A&Ox3 HEENT: normocephalic, atraumatic, supple Heart: RRR, No murmur Chest: CTA-B Abdomen: Soft, nontender Uterus: Firm at U-2 Lochia: Minimal rubra Incision: slightly reddened and irritated/itchy on right edge - appears to be possible reaction to steri strips. Several steri-strips removed. Perineum: Intact, healing well Extremities: Trace edema, and negative Alberto's sign Neuro: Grossly normal A) 37 year-old S/P PPD#2 P) Discharge home today Continue Pelvic rest x6wks Discussed danger signs (infection, preeclampsia, depression, heavy bleeding, etc) Call if incision becomes more irritated/itchy or increased pain, redness, drainage. RTO in 2 weeks for incision check, 4/6 weeks Vaginal - Diagnosis Amniotic Fluid Color: Clear - Procedures Non-surgical Procedures: FSE, IUPC - Delivery Providers Surgeon: Maddison Vasquez School Psychologist Assistant: Caitlin Oconnor Anesthesiologist: Brendan Pickard - Delivery Non-surgical Procedures: FSE, IUPC [place] Data GLYNN: 04/25/18 Gestational Age: 41 week(s) and 0 day(s) Bueno Delivery Date: 04/28/18 Delivery Time: 05:31 Sex of Infant: Male Weight (gm): 3346 kg Score (1 Min): 8 Score (5 Min): 9 Discharge Information - Discharge Information Prescriptions: Ibuprofen [Motrin (*)] 600 mg PO Q6HRS PRN #45 tab PRN Reason: Pain, Mild Ferrous Sulfate [Ferrous Sulf 325 MG (*)] 325 mg PO BID #60 tab oxyCODONE IR [Oxycodone Ir (*)] 5 - 10 mg PO Q4 PRN #20 tab PRN Reason: Pain, Severe Able To Take Po Sennosides/Docusate Sodium [Senokot-S] 1 - 2 tab PO BID #60 tab Condition: Good
[2018-05-01] MEDS: oxyCODONE IR 5 MG TAB PO PRN (13:21)
== END 2018-05-01 13:20 | disposition home or self-care (01) | DRG 766 ==
LOC: FLD 08:50 → FOB 04-28 13:52
PROVIDERS: ADMIT Advanced Practice Midwife; ATTEND Hospitalist
PROC: 10H073Z Insertion of Monitoring Electrode into Products of Conception, Via Natural or Artificial Opening (ICD-10-PCS; 2018-04-27)
PROC: 4A1H7CZ Monitoring of Products of Conception, Cardiac Rate, Via Natural or Artificial Opening (ICD-10-PCS; 2018-04-27)
PROC: 10D00Z1 Extraction of Products of Conception, Low, Open Approach (ICD-10-PCS; principal; 2018-04-28)
DX: O32.4XX0 Maternal care for high head at term, not applicable or unspecified (principal); O32.8XX0 Maternal care for other malpresentation of fetus, not applicable or unspecified; O48.0 Post-term pregnancy; Z3A.41 41 weeks gestation of pregnancy; Z37.0 Single live birth; D64.9 Anemia, unspecified; O99.013 Anemia complicating pregnancy, third trimester; O69.9XX0 Labor and delivery complicated by cord complication, unspecified, not applicable or unspecified
CPT/HCPCS: J0690; J1885; J2274; J2370; J2590; J2765; J3010; J3105